=== PATIENT | male | born 1955 | race Two or more races ===

== ENCOUNTER 2019-09-03 10:22 | Emergency (ER) | payer OTHER, MEDICAID ==
[~2019-09-03] VITALS: Ht 175.3 cm; Wt 66.7 kg
[2019-09-03 10:25] VITALS: BP 150/90
[2019-09-03 10:57] LABS: Basophils # (auto) 0.1 uL; Basophils % (auto) 1.4 % (0.0-2.0); Hemoglobin 11.4 g/dL (13.5-17.5); Monocytes # (auto) 0.3 uL
[2019-09-03 10:59] LABS: Eosinophils # (auto) 0 uL; Eosinophils % (auto) 0.6 % (0.0-7.0); Hematocrit 34.1 % (41.0-53.0); Lymphocytes # (auto) 1.4 uL; Mean Corpuscular Hemoglobin 29.5 pg (28.0-32.0); Mean Corpuscular Hgb Conc. 33.4 g/dL (32.0-36.0); Mean Corpuscular Volume 88.2 fL (80.0-100.0); Monocytes % (auto) 4.3 % (0.0-12.0); Neutrophils # (auto) 5.3 uL; Neutrophils % (auto) 73.7 % (37.0-80.0); Platelet Count (auto) 484 10^3/uL (140-450); Red Blood Cells 3.86 10^6/uL (4.5-5.90); White Blood Cell 7.2 10^3/uL (4.4-10.8)
[2019-09-03 11:10] LABS: Red Cell Distribution Width 23.2 % (11.8-14.3)
[2019-09-03] MEDS ORDERED: SODIUM CHLORIDE 0.9% 1,000 ML IV ONE ×2 (11:10)
[2019-09-03] MEDS ORDERED: metroNIDAZOLE 500MG/100ML 100 ML IV ONE (11:15)
[2019-09-03 11:18] LABS: Albumin 3.2 g/dL (3.4-5.0); Calcium 10.2 mg/dL (8.5-10.1); Potassium 4.2 mmol/L (3.5-5.1)
[2019-09-03 11:22] LABS: BUN/Creatinine Ratio 18.4; Bilirubin, Total 0.3 mg/dL (0.2-1.0); Total Protein 8.1 g/dL (6.4-8.2)
[2019-09-03] MEDS ORDERED: IOHEXOL 350 MG/ML 100ML IJ ONE (11:23)
== END 2019-09-03 16:08 | disposition left against medical advice (07) ==
LOC: ER 10:22
DX: E11.65 Type 2 diabetes mellitus with hyperglycemia (principal); E86.0 Dehydration; E46 Unspecified protein-calorie malnutrition; I10 Essential (primary) hypertension; Z91.041 Radiographic dye allergy status
CPT/HCPCS: 36415; 70450; 71045; 71260; 74177; 80053; 85025; 93005; 99284; Q9967